=== PATIENT | female | born 1950 | race Caucasian/White ===

== ENCOUNTER 2018-01-16 17:23 | Emergency (ER) | payer OTHER ==
[2018-01-16] MEDS: KETOROLAC 15 MG INJ IM (18:22)
[2018-01-16] MEDS: HYDROCODONE/APAP (5/325) TAB PO (18:22)
[2018-01-16 18:25] LABS: URINE BLOOD (Dip) POC Trace-intact (NEGATIVE); URINE GLUCOSE (Dip) POC Negative (NEGATIVE); URINE KETONES (Dip) POC Negative (NEGATIVE); URINE LEUKOCYTE EST (Dip) POC 1+ (NEGATIVE); URINE NITRITE (Dip) POC Negative (NEGATIVE); URINE TOTAL PROTEIN POC Trace (NEGATIVE)
[2018-01-16] MEDS: ONDANSETRON (ODT) 4 MG TAB ODT (19:51)
== END 2018-01-16 19:54 | disposition home or self-care (01) ==
LOC: FTE 17:23
DX: S32.020A Wedge compression fracture of second lumbar vertebra, initial encounter for closed fracture (principal); I10 Essential (primary) hypertension; X58.XXXA Exposure to other specified factors, initial encounter; Y92.89 Other specified places as the place of occurrence of the external cause; Z79.82 Long term (current) use of aspirin
CPT/HCPCS: 72100; 81003; 96372; 99284-25